=== PATIENT | female | born 1950 | race Caucasian/White ===

== ENCOUNTER → 2016-12-14 | Day surgery (SDC) | payer MEDICARE ==
[~2016-12-14] MED LIST: ACETAMINOPHEN/HYDROcodone 325 MG/5 MG TAB ONE; BUPIVACAINE/EPINEPHRINE 0.25% 50 ML VIAL ONE; ISOSULFAN BLUE 50 MG/5 ML VIAL SQ ONE; LACTATED RINGER'S 1000 ML INJ 1,000 ML IV ONE; LACTATED RINGER'S 1000 ML INJ 1,000 ML ONE; MIDAZOLAM HCL 2 MG/2 ML VIAL ONE; MORPHINE SULFATE 4 MG/ML INJ ONE; ONDANSETRON HCL 4 MG/2 ML VIAL IV PUSH ONE; PROPOFOL 200 MG/20 ML AMP IV ONE; ceFAZolin 2 GM PREMIX 50 ML ONE
--- NOTE | 2016-12-14 15:51 | TN ---
cc: SAW CORTEZ M.D. DATE OF SURGERY: 12/14/2016 PREOPERATIVE DIAGNOSIS Invasive ductal carcinoma x2, right breast. POSTOPERATIVE DIAGNOSIS Invasive ductal carcinoma x2, right breast. PROCEDURE PERFORMED 1. Left simple mastectomy. 2. Right simple mastectomy. 3. Injection and excision right axillary sentinel lymph node x5. SURGEON Saw Cortez. 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 ANESTHESIA General LMA. COMPLICATIONS None. INDICATION FOR PROCEDURE Ms. Quintanilla is a pleasant 66-year-old female who was noted to have two mammographic abnormalities in her right breast. She underwent a percutaneous biopsy. This was found to be a multifocal right breast cancer. She was seen and evaluated in the office. Because of her multifocal disease I recommended mastectomy. She sought a second opinion with Dr. Randolph Montoya who recommended bilateral mastectomy. The patient then returned to the office. MRI showed no additional lesions other than the two known lesions in the right breast. She agreed to undergo bilateral mastectomy. She did not want immediate reconstruction. The risks and benefits of bilateral mastectomy with injection and excision of sentinel node was discussed with her and she was agreeable. DETAILS OF PROCEDURE The patient was identified, brought to the operating room and placed supine on the operating table. After adequate general endotracheal anesthesia was achieved the anterior chest and axillae was prepped and draped in a standard surgical fashion. 10 cc of isosulfan blue was injected into the nipple-areolar complex as well as in the upper outer quadrant of the right breast. Attention was first directed to the left breast. 0.25% Marcaine was injected around the left chest wall. A generous elliptical incision was used to excise the nipple-areolar complex as well as the redundant skin on the patient's chest wall. Subcutaneous skin flaps were then raised cephalad to the clavicle, medially to the sternum, inferiorly to the inframammary ridge and laterally to the midaxillary line. The breast was then dissected up off the pectoralis major muscle using electrocautery Bovie. Once the axillary tail was achieved the breast tissue was transected and sent to pathology for analysis. The wound was copiously irrigated with normal saline solution. A 10-Salvadorean Ahsan-Swain drain was inserted through a separate stab wound incision inferior to the surgical incision. The wound was then closed in two layers using 2-0 Vicryl, 3-0 Vicryl and 4-0 Vicryl. The drain was secured with 3-0 nylon. Sterile dressings were applied. Attention was now directed to the right side. On the right side a similar elliptical incision was used, 17 x 9 cm. Subcutaneous skin flaps were then raised cephalad to the clavicle, medially to the sternum, inferiorly to the inframammary ridge and lateral to the midaxillary line. The breast was then dissected up off the pectoralis major muscle using electrocautery Bovie. Dissection proceeded all the way to the axillary tail where the breast tissue and axillary nodes were identified. The breast tissue was then transected and sent to pathology for analysis. A short stitch was placed superior and a long stitch placed lateral in order to orient the specimen. The axillary tail was checked prior to sending the specimen out and there was no significant activity noted with the probe. There were multiple blue channels going through the axillary tail of the breast but there were no obvious nodes. The specimen was sent to pathology for analysis. Attention was now directed to the right axilla. Multiple blue nodes were immediately seen. These were grasped with a DeBakey and dissected from surrounding tissue. The first node excised was found to be sentinel node #1. It was found to have a 10-second count of 1830. It was noted to be significantly blue. Next, another blue node was identified. This was labeled sentinel node #2. This was excised using electrocautery Bovie and found to have a 10-second count of 850. Adjacent to this node was another blue node, #3, which was also excised and found to have a 10-second count of 826. Elmo node #4 had a 10-second count of 1187. A fifth node was then identified. It had a small amount of blue tissue but significant activity on the probe. It was grasped with an Allis clamp and dissected from surrounding tissue using the electrocautery Bovie. The sentinel node #5 had a count of 1636. So there was a total of five sentinel nodes. Once we did this there was some loose axillary tissue which we went ahead and excised due to the fact that the majority of the nodes had come from this area. This was labeled additional axillary tissue and sent to pathology for analysis. Once we did this there was no significant activity with the probe in the right axilla. By palpation there was no palpable adenopathy in the right axilla. By direct visualization I could see no other blue nodes. The wound was therefore copiously irrigated with normal saline solution. A 10-Salvadorean Ahsan-Swain drain was inserted through a separate stab wound incision. The drain was placed in the surgical flap. The skin was then closed in two layers using 2-0, 3-0 and 4-0 Vicryl. Sterile dressings were applied and the patient was awakened and brought to Recovery in stable condition. 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 She also has extensive surgical knowledge of my surgical technique. MD SIXTO Fisher/FRANKY /3:14 PM /3:27 PM
== END | disposition home or self-care (01) ==
LOC: ESDC 07:06
PROVIDERS: ATTEND Surgery Trauma Surgery
DX: C50.911 Malignant neoplasm of unspecified site of right female breast (principal)
CPT/HCPCS: 00400; 01610; 19303; 38525; 38792; 88307; 88309; J0690; J2250; J2270; J2405; J3010; J7120; Q9968